=== PATIENT | male | born 1975 | race Caucasian/White ===

== ENCOUNTER 2022-11-27 14:16 | Inpatient (IN) | payer MEDICARE, MEDICAID ==
[~2022-11-27] VITALS: Ht 182.9 cm; Wt 109.3 kg
[2022-11-27 15:43] LABS: BASOPHILS % 0.4 % (0.0-2.0); EOSINOPHILS % 3.9 % (0.0-5.0); HEMATOCRIT. 28.2 % (42.0-52.0); HEMOGLOBIN. 9.3 g/dL (14.0-18.0); LYMPHOCYTES % 12.2 % (20.0-50.0); MEAN CORPUSCULAR HEMOGLOBIN 30.6 pg (28.0-32.0); MEAN CORPUSCULAR VOLUME 92.3 fL (80.0-94.0); MEAN PLATELET VOLUME 9.6 fl (7.4-10.4); MONOCYTES % 8.9 % (2.0-8.0); NEUTROPHILS % 74.6 % (40.0-76.0); PLATELET 310 x1000/uL (130-400); RED BLOOD CELL COUNT 3.05 mill/uL (4.7-6.1); RED CELL DISTRIBUTION WIDTH 17.7 % (11.6-14.6)
[2022-11-27 16:01] LABS: CHLORIDE 94 mEq/L (98-107)
[2022-11-27] MEDS ORDERED: ASPIRIN 81MG TABLET PO ONE (17:45)
[2022-11-27] MEDS ORDERED: NITROGLYCERIN 0.4MG TABLET SL SL PRN (17:45)
[2022-11-27] MEDS ORDERED: ACETAMINOPHEN WITH CODEINE 300/30MG TABLET PO ONE (18:30)
[2022-11-27] MEDS: MORPHINE SULFATE 2 MG/ML CPJ (NOT FOR IM USE) IV PRN (20:24)
[2022-11-28] MEDS: MORPHINE SULFATE 2 MG/ML CPJ (NOT FOR IM USE) IV PRN ×7 (01:06→23:10)
[2022-11-28] MEDS ORDERED: INSULIN REGULAR (HUMULIN R) 300UNITS/3ML VIAL SUBCUT NR (04:30)
[2022-11-28 06:14] LABS: BASOPHILS % 0.7 % (0.0-2.0); EOSINOPHILS % 2.9 % (0.0-5.0); HEMATOCRIT. 26.3 % (42.0-52.0); HEMOGLOBIN. 8.7 g/dL (14.0-18.0); LYMPHOCYTES % 16.5 % (20.0-50.0); MEAN CORPUSCULAR HEMOGLOBIN 30.6 pg (28.0-32.0); MEAN CORPUSCULAR VOLUME 92.5 fL (80.0-94.0); MEAN PLATELET VOLUME 8.4 fl (7.4-10.4); MONOCYTES % 10.6 % (2.0-8.0); NEUTROPHILS % 69.3 % (40.0-76.0); PLATELET 236 x1000/uL (130-400); RED BLOOD CELL COUNT 2.85 mill/uL (4.7-6.1); RED CELL DISTRIBUTION WIDTH 17.3 % (11.6-14.6)
[2022-11-28 07:56] LABS: HEPATITIS B SURFACE ANTIGEN NEGATIVE
[2022-11-28] MEDS ORDERED: ACETAMINOPHEN 325MG TABLET PO PRN (12:00)
[2022-11-28] MEDS ORDERED: DOCUSATE SODIUM 100MG CAPSULE PO PRN (12:00)
[2022-11-28] MEDS ORDERED: ONDANSETRON HCL 4MG/2ML INJ IV PRN (12:00)
[2022-11-28] MEDS ORDERED: IPRATROPIUM/ALBUTEROL 0.5-3(2.5)MG/3ML NEB NEB PRN (12:00)
[2022-11-28] MEDS: AMLODIPINE 5MG TABLET PO SCH ×3 (12:00→16:00)
[2022-11-28] MEDS ORDERED: NALOXONE HCL 0.4MG/ML VIAL IV PRN (12:15)
[2022-11-28] MEDS: ASPIRIN 81MG TABLET PO SCH (12:49)
[2022-11-28] MEDS: ENOXAPARIN 40MG/0.4ML SYR SUBCUT SCH (12:52)
[2022-11-28] MEDS ORDERED: LIDOCAINE HCL 4% CREAM 76GM TUBE TP PRN (13:45)
[2022-11-28] MEDS: GUAIFENESIN-DM 200MG-20MG/10ML UDC PO PRN ×2 (14:29→23:30)
[2022-11-28 14:43] LABS: CREATINE KINASE MB FRACTION 5.1 ng/mL (0.5-3.6)
[2022-11-28 15:10] VITALS: BP 168/94
[2022-11-28 16:10] VITALS: BP 179/98
[2022-11-28] MEDS: CLONIDINE 0.1MG TABLET PO PRN ×2 (16:39→23:23)
[2022-11-28 17:10] VITALS: BP 197/97
[2022-11-28] MEDS ORDERED: HYDRALAZINE 20MG/ML VIAL IV PRN (17:45)
[2022-11-28 18:10] VITALS: BP 202/102
[2022-11-28] MEDS: CARVEDILOL 3.125 MG TABLET PO SCH (21:00)
[2022-11-28 22:08] LABS: CREATINE KINASE MB FRACTION 4.2 ng/mL (0.5-3.6)
[2022-11-28 22:50] VITALS: BP 163/95
[2022-11-28 22:52] VITALS: BP 163/95
[2022-11-29] VITALS: BP 163/86
[2022-11-29] MEDS ORDERED: HJ10 SQ (00:13)
[2022-11-29] MEDS ORDERED: ONDA4TAB50 MT (00:13)
[2022-11-29] MEDS ORDERED: LANS15CA17 MT (00:13)
[2022-11-29] MEDS ORDERED: MORP15TA67 MT (00:13)
[2022-11-29] MEDS ORDERED: DIVA-73 MT (00:13)
[2022-11-29] MEDS ORDERED: BISA10SU62 RC (00:13)
[2022-11-29] MEDS ORDERED: TUSSL MT (00:13)
[2022-11-29] MEDS ORDERED: MOM MT (00:13)
[2022-11-29] MEDS ORDERED: NIFE-32 MT (00:13)
[2022-11-29] MEDS ORDERED: CLOP75TA33 MT (00:13)
[2022-11-29] MEDS ORDERED: INSU100V40 (00:13)
[2022-11-29] MEDS ORDERED: SODI10PO PO (00:13)
[2022-11-29] MEDS ORDERED: CLON0.2T PO (00:13)
[2022-11-29] MEDS ORDERED: GABA-529 MT (00:13)
[2022-11-29] MEDS ORDERED: OXYC1TAB12 MT (00:13)
[2022-11-29] MEDS ORDERED: HYDR2TAB7 MT (00:13)
[2022-11-29] MEDS ORDERED: TEMA15CA MT (00:13)
[2022-11-29] MEDS ORDERED: METO-539 MT (00:13)
[2022-11-29] MEDS ORDERED: B-CO1TAB PO (00:13)
[2022-11-29] MEDS ORDERED: LISI10TA26 MT (00:13)
[2022-11-29] MEDS ORDERED: FEO RC (00:13)
[2022-11-29] MEDS ORDERED: ASPI-1497 MT (00:13)
[2022-11-29] MEDS ORDERED: MELA3TAB40 MT (00:13)
[2022-11-29] MEDS ORDERED: TOPUD MT (00:13)
[2022-11-29] MEDS ORDERED: ISOS60TA76 MT (00:13)
[2022-11-29] MEDS ORDERED: HYDR-4133 PO (00:13)
[2022-11-29] MEDS ORDERED: POLY119P2 MT (00:13)
[2022-11-29] MEDS ORDERED: NITR0.4T49 SL (00:13)
[2022-11-29] MEDS ORDERED: LACT10SO6 MT (00:13)
[2022-11-29] MEDS ORDERED: SEVE0.8P MT (00:13)
[2022-11-29] MEDS ORDERED: ATOR10TA69 MT (00:13)
[2022-11-29] MEDS ORDERED: DIPH25TA24 MT (00:13)
[2022-11-29] MEDS ORDERED: GLUC1KIT3 SQ (00:13)
[2022-11-29] MEDS ORDERED: DOCU-150 MT (00:13)
[2022-11-29] MEDS ORDERED: DEXTROSE 50% WATER 50ML SYRINGE IV PRN (00:30)
[2022-11-29] MEDS: MORPHINE SULFATE 15MG TABLET SR PO PRN ×2 (02:07→14:20)
[2022-11-29] MEDS: OXYCODONE HCL/ACETAMINOPHEN 5/325MG TABLET PO PRN ×3 (03:08→18:52)
[2022-11-29 04:00] VITALS: BP 144/77
[2022-11-29] MEDS: BLOOD SUGAR DIAGNOSTIC STRIP TEST SCH ×4 (06:16→20:55)
[2022-11-29] MEDS: HYDROMORPHONE HCL 2MG TABLET PO PRN ×3 (07:19→23:57)
[2022-11-29 08:00] VITALS: BP 133/87
[2022-11-29] MEDS: ASPIRIN 81MG TABLET PO SCH (08:17)
[2022-11-29] MEDS: ENOXAPARIN 40MG/0.4ML SYR SUBCUT SCH (08:17)
[2022-11-29] MEDS: CARVEDILOL 3.125 MG TABLET PO SCH ×2 (08:17→20:54)
[2022-11-29] MEDS: INSULIN LISPRO 100 UNITS/ML SUBCUT SCH ×4 (08:26→20:55)
[2022-11-29 12:00] VITALS: BP 139/71
[2022-11-29 16:00] VITALS: BP_SYST 137; BP_SYST 172; BP_DIAS 71; BP_DIAS 91
[2022-11-29] MEDS: GUAIFENESIN-DM 200MG-20MG/10ML UDC PO PRN (17:49)
[2022-11-29] MEDS: CLONIDINE 0.1MG TABLET PO PRN (17:49)
[2022-11-29 20:00] VITALS: BP 165/88
[2022-11-30] VITALS (14 sets, daily range): BP systolic 142–185; BP diastolic 73–101
[2022-11-30] MEDS: OXYCODONE HCL/ACETAMINOPHEN 5/325MG TABLET PO PRN ×3 (02:47→20:05)
[2022-11-30] MEDS: GUAIFENESIN-DM 200MG-20MG/10ML UDC PO PRN ×2 (02:47→08:22)
[2022-11-30] MEDS: MORPHINE SULFATE 2 MG/ML CPJ (NOT FOR IM USE) IV PRN ×3 (04:29→20:43)
[2022-11-30 06:35] LABS: BASOPHILS % 0.7 % (0.0-2.0); EOSINOPHILS % 8.4 % (0.0-5.0); HEMATOCRIT. 24.6 % (42.0-52.0); HEMOGLOBIN. 8.4 g/dL (14.0-18.0); LYMPHOCYTES % 21.2 % (20.0-50.0); MEAN PLATELET VOLUME 8.3 fl (7.4-10.4); MONOCYTES % 10.4 % (2.0-8.0); NEUTROPHILS % 59.3 % (40.0-76.0); PLATELET 240 x1000/uL (130-400); RED BLOOD CELL COUNT 2.62 mill/uL (4.7-6.1); RED CELL DISTRIBUTION WIDTH 17.5 % (11.6-14.6)
[2022-11-30] MEDS: BLOOD SUGAR DIAGNOSTIC STRIP TEST SCH ×4 (07:40→21:00)
[2022-11-30] MEDS: ASPIRIN 81MG TABLET PO SCH (08:16)
[2022-11-30] MEDS: AMLODIPINE 5MG TABLET PO SCH (08:16)
[2022-11-30] MEDS: CARVEDILOL 3.125 MG TABLET PO SCH ×2 (08:17→22:10)
[2022-11-30] MEDS: INSULIN LISPRO 100 UNITS/ML SUBCUT SCH ×4 (08:22→22:22)
[2022-11-30] MEDS ORDERED: AMLODIPINE 5MG TABLET PO NR (09:00)
[2022-11-30] MEDS ORDERED: NITROGLYCERIN 50MCG/ML 10ML VIAL (CATH LAB) IV ONE (12:12)
[2022-11-30] MEDS ORDERED: NICARDIPINE 100MCG/ML 10ML VIAL (CATH LAB) IV ONE (12:12)
[2022-11-30] MEDS ORDERED: IODIXANOL 320MG/ML 100 ML BOTTLE IV ONE (14:42)
[2022-11-30] MEDS ORDERED: MIDAZOLAM HCL 2 MG/2 ML VIAL ONE (15:04)
[2022-11-30] MEDS ORDERED: HEPARIN 1000 UNITS/ML 10ML ONE (15:05)
[2022-11-30] MEDS ORDERED: FENTANYL CITRATE/PF 50MCG/ML 2ML VIAL ONE ×2 (15:05→16:10)
[2022-11-30] MEDS ORDERED: LIDOCAINE HCL/PF 2% 20MG/ML 5 ML/VIAL ONE (15:08)
[2022-11-30] MEDS ORDERED: ASPIRIN/SOD BICARB/CITRIC ACID 324MG TAB EFF ONE (15:12)
[2022-11-30] MEDS ORDERED: ATROPINE SULFATE 1MG/10ML SYR IV PRN (16:00)
[2022-11-30] MEDS ORDERED: ONDANSETRON HCL 4MG/2ML INJ IV PRN (16:00)
[2022-11-30] MEDS ORDERED: ACETAMINOPHEN 325MG TABLET PO PRN (16:00)
[2022-11-30] MEDS ORDERED: MORPHINE SULFATE 2 MG/ML CPJ (NOT FOR IM USE) IV PRN (16:00)
[2022-11-30] MEDS ORDERED: EPOETIN ALFA 10000UNITS/ML VIAL SUBCUT SCH (21:00)
[2022-11-30] MEDS ORDERED: EPOETIN ALFA-EPBX 4,000 UNIT/ML VIAL SUBCUT SCH (21:00)
[2022-11-30] MEDS ORDERED: NITROGLYCERIN 0.4MG TABLET SL SL PRN (21:45)
[2022-11-30] MEDS: NITROGLYCERIN OINT 1GM/INCH UDPKT TD SCH (21:45)
[2022-12-01] VITALS (14 sets, daily range): BP systolic 106–173; BP diastolic 66–113
[2022-12-01] MEDS: OXYCODONE HCL/ACETAMINOPHEN 5/325MG TABLET PO PRN ×3 (02:24→20:01)
[2022-12-01] MEDS: GUAIFENESIN-DM 200MG-20MG/10ML UDC PO PRN ×2 (05:15→21:44)
[2022-12-01] MEDS: HYDROMORPHONE HCL 2MG TABLET PO PRN (05:21)
[2022-12-01] MEDS: BLOOD SUGAR DIAGNOSTIC STRIP TEST SCH ×4 (06:23→21:47)
[2022-12-01] MEDS: NITROGLYCERIN OINT 1GM/INCH UDPKT TD SCH ×3 (06:23→17:39)
[2022-12-01] MEDS: CARVEDILOL 3.125 MG TABLET PO SCH (07:55)
[2022-12-01] MEDS: AMLODIPINE 10MG TABLET PO SCH (07:56)
[2022-12-01] MEDS: ASPIRIN 81MG TABLET PO SCH (07:56)
[2022-12-01] MEDS: INSULIN LISPRO 100 UNITS/ML SUBCUT SCH ×4 (07:58→21:46)
[2022-12-01] MEDS: HYDRALAZINE HCL 50MG TABLET PO SCH ×2 (09:35→21:47)
[2022-12-01] MEDS: MORPHINE SULFATE 2 MG/ML CPJ (NOT FOR IM USE) IV PRN (13:29)
[2022-12-01 16:25] LABS: BASOPHILS % 0.9 % (0.0-2.0); EOSINOPHILS % 6.7 % (0.0-5.0); HEMATOCRIT. 26.8 % (42.0-52.0); HEMOGLOBIN. 8.6 g/dL (14.0-18.0); LYMPHOCYTES % 18.5 % (20.0-50.0); MEAN CORPUSCULAR VOLUME 93.7 fL (80.0-94.0); MEAN PLATELET VOLUME 7.9 fl (7.4-10.4); MONOCYTES % 11.2 % (2.0-8.0); NEUTROPHILS % 62.7 % (40.0-76.0); PLATELET 244 x1000/uL (130-400); RED BLOOD CELL COUNT 2.86 mill/uL (4.7-6.1)
[2022-12-01 17:15] LABS: VITAMIN B12 SERUM 975 pg/mL (211-911)
[2022-12-01] MEDS ORDERED: CARVEDILOL 6.25 MG TABLET PO SCH (21:00)
[2022-12-02] VITALS: BP 164/90
[2022-12-02] MEDS: OXYCODONE HCL/ACETAMINOPHEN 5/325MG TABLET PO PRN ×2 (01:56→09:00)
[2022-12-02 04:00] VITALS: BP 158/86
[2022-12-02] MEDS: NITROGLYCERIN OINT 1GM/INCH UDPKT TD SCH ×3 (06:00→11:43)
[2022-12-02 06:08] LABS: BASOPHILS % 0.9 % (0.0-2.0); EOSINOPHILS % 7.3 % (0.0-5.0); HEMATOCRIT. 24.9 % (42.0-52.0); HEMOGLOBIN. 8.1 g/dL (14.0-18.0); LYMPHOCYTES % 22.7 % (20.0-50.0); MEAN CORPUSCULAR HEMOGLOBIN 30.4 pg (28.0-32.0); MEAN CORPUSCULAR VOLUME 93.3 fL (80.0-94.0); MONOCYTES % 11.1 % (2.0-8.0); PLATELET 217 x1000/uL (130-400); RED BLOOD CELL COUNT 2.67 mill/uL (4.7-6.1); RED CELL DISTRIBUTION WIDTH 17.9 % (11.6-14.6)
[2022-12-02] MEDS: BLOOD SUGAR DIAGNOSTIC STRIP TEST SCH ×2 (06:48→11:43)
[2022-12-02 08:00] VITALS: BP 154/69
[2022-12-02] MEDS: AMLODIPINE 10MG TABLET PO SCH (08:59)
[2022-12-02] MEDS ORDERED: CARVEDILOL 6.25 MG TABLET PO SCH (09:00)
[2022-12-02] MEDS: HYDRALAZINE HCL 50MG TABLET PO SCH (09:00)
[2022-12-02] MEDS: ASPIRIN 81MG TABLET PO SCH (09:00)
[2022-12-02] MEDS: INSULIN LISPRO 100 UNITS/ML SUBCUT SCH ×2 (09:02→11:56)
[2022-12-02] MEDS ORDERED: HYDRALAZINE HCL 100MG TABLET PO SCH ×2 (10:00→21:00)
[2022-12-02 10:02] VITALS: BP 154/69
[2022-12-02] MEDS ORDERED: HYDRALAZINE HCL 50MG TABLET PO SCH (11:30)
[2022-12-02 12:00] VITALS: BP 150/76
[2022-12-02] MEDS ORDERED: ALBUTEROL (0.083%) 2.5MG/3ML NEB HHN PRN (12:30)
[2022-12-02] MEDS ORDERED: IPRATROPIUM BROMIDE (0.02%) 0.5MG/2.5ML NEB HHN PRN (12:30)
== END 2022-12-02 12:32 | DRG 280 ==
LOC: ER 14:16 → EDBEDREQ 17:43 → 7WST 19:11 → EDBEDREQTM 19:14 → EDBEDREQ 19:14 → 3WST 11-30 16:48
PROVIDERS: ADMIT Internal Medicine; ATTEND Internal Medicine
PROC: 5A1D70Z Performance of Urinary Filtration, Intermittent, Less than 6 Hours Per Day (ICD-10-PCS; 2022-11-28)
PROC: 4A023N7 Measurement of Cardiac Sampling and Pressure, Left Heart, Percutaneous Approach (ICD-10-PCS; principal; 2022-11-30)
PROC: B211YZZ Fluoroscopy of Multiple Coronary Arteries using Other Contrast (ICD-10-PCS; 2022-11-30)
PROC: B215YZZ Fluoroscopy of Left Heart using Other Contrast (ICD-10-PCS; 2022-11-30)
PROC: 5A1D70Z Performance of Urinary Filtration, Intermittent, Less than 6 Hours Per Day (ICD-10-PCS; 2022-11-30)
PROC: 5A1D70Z Performance of Urinary Filtration, Intermittent, Less than 6 Hours Per Day (ICD-10-PCS; 2022-12-01)
DX: I21.4 Non-ST elevation (NSTEMI) myocardial infarction (principal); N18.6 End stage renal disease; E46 Unspecified protein-calorie malnutrition; F11.20 Opioid dependence, uncomplicated; I12.0 Hypertensive chronic kidney disease with stage 5 chronic kidney disease or end stage renal disease; I42.0 Dilated cardiomyopathy; Z20.822 Contact with and (suspected) exposure to COVID-19; I25.10 Atherosclerotic heart disease of native coronary artery without angina pectoris; E11.22 Type 2 diabetes mellitus with diabetic chronic kidney disease; E87.70 Fluid overload, unspecified; H54.8 Legal blindness, as defined in USA; I25.5 Ischemic cardiomyopathy; G89.29 Other chronic pain; D63.1 Anemia in chronic kidney disease; Z68.32 Body mass index [BMI] 32.0-32.9, adult; I25.2 Old myocardial infarction; Z99.2 Dependence on renal dialysis; Z99.81 Dependence on supplemental oxygen; Z96.659 Presence of unspecified artificial knee joint; Z95.5 Presence of coronary angioplasty implant and graft; Z87.891 Personal history of nicotine dependence; Z86.73 Personal history of transient ischemic attack (TIA), and cerebral infarction without residual deficits
CPT/HCPCS: 36415; 71045; 80048; 80053; 80061; 82550; 82553; 82607; 82962; 83540; 83550; 83735; 83880; 84484; 85025; 85044; 86705; 86709; 86803; 87340; 87426; 90935; 93005; 93306; 93458; 93970; 96372; 96374; 96375; 99285; C1769; C1887; C1893; J0360; J0885; J1644; J1650; J1815; J2250; J2270; J3010; J3490; Q9967

== ENCOUNTER 2022-12-07 06:11 | Inpatient (IN) | payer MEDICARE, MEDICAID ==
[~2022-12-07] VITALS: Ht 182.9 cm; Wt 115.8 kg
[2022-12-07] VITALS (7 sets, daily range): BP systolic 153–186; BP diastolic 63–106
[~2022-12-07 06:11] MED LIST: ASPI-1497 MT; ATOR10TA69 MT; B-CO1TAB PO; BISA10SU62 RC; CLON0.2T PO; CLOP75TA33 MT; DIPH25TA24 MT; DIVA-73 MT; DOCU-150 MT; FEO RC; GABA-529 MT; GLUC1KIT3 SQ; HJ10 SQ; HYDR-4133 PO; HYDR2TAB7 MT; INSU100V40; ISOS60TA76 MT; LACT10SO6 MT; LANS15CA17 MT; LISI10TA26 MT; MELA3TAB40 MT; METO-539 MT; MOM MT; MORP15TA67 MT; NIFE-32 MT; NITR0.4T49 SL; ONDA4TAB50 MT; OXYC1TAB12 MT; POLY119P2 MT; SEVE0.8P MT; SODI10PO PO; TEMA15CA MT; TOPUD MT; TUSSL MT
[2022-12-07 08:15] LABS: EOSINOPHILS % 7.8 % (0.0-5.0); HEMATOCRIT. 24.7 % (42.0-52.0); HEMOGLOBIN. 8.1 g/dL (14.0-18.0); MEAN CORPUSCULAR HEMOGLOBIN 30.2 pg (28.0-32.0); MEAN CORPUSCULAR VOLUME 92.2 fL (80.0-94.0); MEAN PLATELET VOLUME 7.9 fl (7.4-10.4); MONOCYTES % 10.1 % (2.0-8.0); NEUTROPHILS % 60.1 % (40.0-76.0); PLATELET 253 x1000/uL (130-400); RED BLOOD CELL COUNT 2.68 mill/uL (4.7-6.1); RED CELL DISTRIBUTION WIDTH 17.9 % (11.6-14.6)
[2022-12-07 08:25] LABS: CHLORIDE 99 mEq/L (98-107)
[2022-12-07 09:14] LABS: INR 1.1; PARTIAL THROMBOPLASTIN TIME 29.6 sec (23.4-31.0); PROTHROMBIN TIME 11.5 sec (9.6-11.0)
[2022-12-07] MEDS ORDERED: NITROGLYCERIN 0.4MG TABLET SL SL PRN (11:30)
[2022-12-07] MEDS ORDERED: ACETAMINOPHEN 325MG TABLET PO PRN (11:30)
[2022-12-07 12:05] LABS: HEPATITIS B SURFACE ANTIGEN NEGATIVE
[2022-12-07] MEDS ORDERED: HYDROCODONE/ACETAMINOPHEN 5/325MG TABLET PO PRN (13:15)
[2022-12-07] MEDS ORDERED: CLONIDINE 0.1MG TABLET PO PRN (13:15)
[2022-12-07] MEDS ORDERED: ONDANSETRON HCL 4MG/2ML INJ IV PRN (13:15)
[2022-12-07] MEDS ORDERED: ENOXAPARIN 40MG/0.4ML SYR SUBCUT SCH (13:15)
[2022-12-07] MEDS ORDERED: MAGNESIUM/ALUMINUM HYDROXIDE/SIMETHICONE 30ML UDC PO PRN (13:15)
[2022-12-07] MEDS ORDERED: NALOXONE HCL 0.4MG/ML VIAL IV PRN (15:00)
[2022-12-07] MEDS: HYDROCODONE/ACETAMINOPHEN 10/325MG TABLET PO PRN (16:00)
[2022-12-07 16:12] LABS: VITAMIN B12 SERUM 701 pg/mL (211-911)
[2022-12-07] MEDS: HYDROMORPHONE HCL/PF 2MG/ML CPJ IV PRN ×2 (16:24→22:33)
[2022-12-07] MEDS: INSULIN LISPRO 100 UNITS/ML SUBCUT SCH ×2 (18:20→21:00)
[2022-12-07] MEDS ORDERED: ASCORBIC ACID 500 MG TABLET PO SCH (21:00)
[2022-12-07] MEDS: ALLOPURINOL 300 MG TABLET PO SCH (21:00)
[2022-12-07] MEDS ORDERED: DOCUSATE SODIUM 100MG CAPSULE PO SCH (21:00)
[2022-12-07] MEDS: CARVEDILOL 6.25 MG TABLET PO SCH (21:00)
[2022-12-07] MEDS ORDERED: HEPARIN 10,000 UNITS/ML VIAL ONE (21:00)
[2022-12-07] MEDS: BLOOD SUGAR DIAGNOSTIC STRIP TEST SCH ×2 (21:00→22:25)
[2022-12-07] MEDS ORDERED: CHLORHEXIDINE GLUCONATE 4% EXTERNAL USE TOP SCH (21:00)
[2022-12-07] MEDS ORDERED: DIPHENHYDRAMINE 25MG CAPSULE PO PRN (21:00)
[2022-12-07] MEDS ORDERED: BISACODYL 10MG SUPP PR PRN (21:00)
[2022-12-08] VITALS (41 sets, daily range): BP systolic 103–174; BP diastolic 30–99
[2022-12-08] MEDS ORDERED: EPINEPHRINE 5 MG in DEXT 5% WATER 245 ML IV PRN ×2 (05:00→18:00)
[2022-12-08] MEDS ORDERED: INSULIN REGULAR 100U/100ML PMX 100 ML IV NR (05:00)
[2022-12-08] MEDS ORDERED: DOBUTAMINE 250MG PREMIX 250 ML IV PRN (05:00)
[2022-12-08] MEDS ORDERED: DEL NIDO ELECTROLYTE-S(PH 7.4) 1,000 ML IV NR ×2 (05:00)
[2022-12-08] MEDS ORDERED: CEFAZOLIN 2,000 MG in DEXT 5% WATER 100 ML IV NR (05:00)
[2022-12-08] MEDS ORDERED: PAPAVERINE HCL 180MG in SODIUM CHLORIDE 0.9% 24ML IV NR (05:00)
[2022-12-08] MEDS ORDERED: NICARDIPINE 40MG/200ML PREMIX 200 ML IV PRN (05:00)
[2022-12-08] MEDS ORDERED: DOPAMINE 400 MG PREMIX 250 ML IV PRN (05:00)
[2022-12-08] MEDS ORDERED: NOREPINEPHRINE 8 MG in DEXT 5% WATER 242 ML IV PRN (05:00)
[2022-12-08 05:17] LABS: BASOPHILS % 1.2 % (0.0-2.0); EOSINOPHILS % 5.9 % (0.0-5.0); HEMATOCRIT. 24.6 % (42.0-52.0); HEMOGLOBIN. 8.3 g/dL (14.0-18.0); LYMPHOCYTES % 19.5 % (20.0-50.0); MEAN CORPUSCULAR HEMOGLOBIN 30.9 pg (28.0-32.0); MEAN CORPUSCULAR VOLUME 91.7 fL (80.0-94.0); MONOCYTES % 7.9 % (2.0-8.0); NEUTROPHILS % 65.5 % (40.0-76.0); PLATELET 254 x1000/uL (130-400); RED BLOOD CELL COUNT 2.69 mill/uL (4.7-6.1); RED CELL DISTRIBUTION WIDTH 17.7 % (11.6-14.6)
[2022-12-08 06:09] LABS: T4 FREE 0.83 ng/dL (0.76-1.46)
[2022-12-08] MEDS: ALLOPURINOL 300 MG TABLET PO SCH (06:18)
[2022-12-08] MEDS: HYDROMORPHONE HCL/PF 2MG/ML CPJ IV PRN (06:22)
[2022-12-08] MEDS: BLOOD SUGAR DIAGNOSTIC STRIP TEST SCH ×8 (06:50→22:50)
[2022-12-08] MEDS: INSULIN LISPRO 100 UNITS/ML SUBCUT SCH ×2 (07:20→11:49)
[2022-12-08] MEDS ORDERED: POLYMYXIN B SULFATE 500000 UNITS/VIAL ONE (07:20)
[2022-12-08] MEDS ORDERED: SKIN ADHESIVE 0.7 GM EA TOP ONE (07:20)
[2022-12-08] MEDS ORDERED: THROMBIN (BOVINE) 5000 UNITS/VIAL TOP ONE (07:20)
[2022-12-08] MEDS ORDERED: NICARDIPINE 40MG/200ML PREMIX 200 ML IV ONE (07:22)
[2022-12-08] MEDS ORDERED: DOPAMINE 400MG/250ML PREMIX 250 ML IV ONE (07:22)
[2022-12-08] MEDS ORDERED: HEPARIN 1000 UNITS/ML 10ML ONE ×2 (07:22→15:49)
[2022-12-08] MEDS: HYDROCODONE/ACETAMINOPHEN 10/325MG TABLET PO PRN (08:54)
[2022-12-08] MEDS: CARVEDILOL 6.25 MG TABLET PO SCH ×2 (09:00→21:03)
[2022-12-08] MEDS ORDERED: PANTOPRAZOLE SODIUM 40 MG/VIAL IV SCH (09:00)
[2022-12-08] MEDS ORDERED: CHLORHEXIDINE GLUCONATE 4% EXTERNAL USE TOP SCH (09:00)
[2022-12-08] MEDS ORDERED: AMLO10TA80 PO (11:11)
[2022-12-08] MEDS ORDERED: CLON0.1T PO (11:11)
[2022-12-08] MEDS ORDERED: CARV6.2548 PO (11:11)
[2022-12-08] MEDS ORDERED: IPRA3AMP31 IH (11:18)
[2022-12-08] MEDS ORDERED: HYDR100T26 PO (11:18)
[2022-12-08] MEDS ORDERED: LIDO700A30 TP (11:18)
[2022-12-08] MEDS ORDERED: HYDR1LIQ5 PO (11:18)
[2022-12-08] MEDS ORDERED: ROCURONIUM BROMIDE 10MG/ML VIAL 5ML IV ONE ×2 (12:44→14:18)
[2022-12-08] MEDS ORDERED: MORPHINE SULFATE/PF 1MG/ML 10ML AMP ONE (13:16)
[2022-12-08] MEDS ORDERED: MAGNESIUM 1 G PREMIX 100 ML IV PRN ×2 (14:30→17:30)
[2022-12-08] MEDS ORDERED: INSULIN REGULAR 100U/100ML PMX 100 ML IV SCH (14:30)
[2022-12-08] MEDS ORDERED: MAGNESIUM 2 G PREMIX 50 ML IV PRN ×2 (14:30→17:30)
[2022-12-08] MEDS ORDERED: MAGNESIUM SULFATE 3 GM in DEXT 5% WATER 100 ML IV PRN ×2 (14:30→17:30)
[2022-12-08] MEDS ORDERED: CALCIUM CHLORIDE 1GM/10ML SYR IV ONE (15:21)
[2022-12-08] MEDS ORDERED: FUROSEMIDE 100MG/10ML VIAL ONE (15:49)
[2022-12-08] MEDS ORDERED: DEXAMETHASONE 4MG/ML 1ML VIAL ONE (15:49)
[2022-12-08] MEDS ORDERED: SODIUM BICARBONATE 8.4% 1 MEQ/ML 50ML SYR IV ONE (15:49)
[2022-12-08] MEDS ORDERED: BLOOD SUGAR DIAGNOSTIC STRIP TEST SCH (16:00)
[2022-12-08] MEDS ORDERED: ALBUTEROL 6.7GM HFA INHALER ONE (16:18)
[2022-12-08] MEDS ORDERED: NEOSTIGMINE METHYLSULFATE 1MG/ML 10 ML VIAL ONE (17:09)
[2022-12-08] MEDS ORDERED: GLYCOPYRROLATE 0.2 MG/ML 2ML VIAL ONE ×2 (17:09)
[2022-12-08] MEDS ORDERED: CALCIUM CHLORIDE 3,000 MG in DEXT 5% WATER 250 ML IV PRN (17:30)
[2022-12-08] MEDS ORDERED: ONDANSETRON HCL 4MG/2ML INJ IV PRN (17:30)
[2022-12-08] MEDS ORDERED: ONDANSETRON HCL 4MG TABLET PO PRN (17:30)
[2022-12-08] MEDS ORDERED: CALCIUM CHLORIDE 5,000 MG in DEXT 5% WATER 500 ML IV PRN (17:30)
[2022-12-08] MEDS ORDERED: ALBUMIN HUMAN 12.5G/250ML (5%) IV PRN (17:30)
[2022-12-08] MEDS ORDERED: ACETAMINOPHEN 325MG TABLET PO PRN (17:30)
[2022-12-08] MEDS ORDERED: ALBUMIN HUMAN 25GM/100ML (25%) IV PRN (17:30)
[2022-12-08] MEDS ORDERED: OXYCODONE HCL/ACETAMINOPHEN 5/325MG TABLET PO PRN (17:30)
[2022-12-08] MEDS ORDERED: SODIUM CHLORIDE 0.9% 500 ML IV PRN (17:30)
[2022-12-08] MEDS ORDERED: IPRATROPIUM/ALBUTEROL 0.5-3(2.5)MG/3ML NEB HHN SCH (17:30)
[2022-12-08] MEDS ORDERED: DOPAMINE 400MG/250ML PREMIX 250 ML IV PRN (17:30)
[2022-12-08 17:58] LABS: BG BASE EXCESS -1.5 mmol/L (-2.0-2.0); BG CARBOXYHEMOGLOBIN 0.8 % (0.5-1.5); BG DEOXYHEMOGLOBIN 7.3 % (0.0-5.0); BG HCO3 ACT 26.6 mmol/L (22.0-26.0); BG METHEMOGLOBIN 0.3 % (0.0-1.5); BG OXYGEN SATURATION 92.6 % (92.0-98.5); BG OXYHEMOGLOBIN 91.6 % (94.0-97.0); BG PCO2 62.2 mmHg (35.0-45.0); BG PH 7.249 (7.350-7.450); BG SAMPLE SITE ALINE; BG TOTAL HEMOGLOBIN 10.9 g/dL (12.0-18.0); BG VENT MODE MASK - NRB
[2022-12-08] MEDS: MAGNESIUM HYDROXIDE 400MG/5ML 30ML UDC PO SCH ×2 (18:00→22:29)
[2022-12-08 18:15] LABS: HEMATOCRIT. 29.4 % (42.0-52.0); HEMOGLOBIN. 9.5 g/dL (14.0-18.0); MEAN CORPUSCULAR HEMOGLOBIN 29.9 pg (28.0-32.0); MEAN CORPUSCULAR VOLUME 92.4 fL (80.0-94.0); MEAN PLATELET VOLUME 7.7 fl (7.4-10.4); PLATELET 237 x1000/uL (130-400); RED BLOOD CELL COUNT 3.18 mill/uL (4.7-6.1); RED CELL DISTRIBUTION WIDTH 17.2 % (11.6-14.6)
[2022-12-08] MEDS: DEXT 5%/0.45% NACL 1000ML 1,000 ML IV SCH (18:17)
[2022-12-08] MEDS: FAMOTIDINE 20MG/2ML VIAL IV SCH (18:25)
[2022-12-08] MEDS: DEXTROSE 50% WATER 50ML SYRINGE IV PRN (19:00)
[2022-12-08] MEDS: CEFAZOLIN 1000MG PREMIX 50 ML IV SCH (20:55)
[2022-12-08] MEDS: OXYCODONE HCL/ACETAMINOPHEN 5/325MG TABLET PO PRN (21:00)
[2022-12-08] MEDS: HYDRALAZINE HCL 100MG TABLET PO SCH (21:04)
[2022-12-08 21:07] LABS: BG BASE EXCESS -0.4 mmol/L (-2.0-2.0); BG CARBOXYHEMOGLOBIN 1.1 % (0.5-1.5); BG DEOXYHEMOGLOBIN 1.1 % (0.0-5.0); BG HCO3 ACT 25.7 mmol/L (22.0-26.0); BG METHEMOGLOBIN 0.3 % (0.0-1.5); BG OXYGEN SATURATION 98.9 % (92.0-98.5); BG OXYHEMOGLOBIN 97.5 % (94.0-97.0); BG PCO2 49.1 mmHg (35.0-45.0); BG PH 7.337 (7.350-7.450); BG PO2 147.8 mmHg (75.0-100.0); BG SAMPLE SITE ALINE; BG TOTAL HEMOGLOBIN 10.6 g/dL (12.0-18.0); BG VENT MODE MASK - NRB
[2022-12-08 21:23] LABS: PLATELET ESTIMATE NORMAL
[2022-12-08] MEDS: IPRATROPIUM BROMIDE (0.02%) 0.5MG/2.5ML NEB HHN SCH (21:58)
[2022-12-08] MEDS: ALBUTEROL (0.083%) 2.5MG/3ML NEB HHN SCH (21:58)
[2022-12-08] MEDS ORDERED: KCL 20MEQ/100ML PREMIX 100 ML IV NR (22:15)
[2022-12-09] VITALS (107 sets, daily range): BP systolic 85–185; BP diastolic 43–100
[2022-12-09 00:55] LABS: HEMATOCRIT. 27.7 % (42.0-52.0); HEMOGLOBIN. 9.1 g/dL (14.0-18.0); MEAN CORPUSCULAR HEMOGLOBIN 30.1 pg (28.0-32.0); MEAN CORPUSCULAR VOLUME 91.3 fL (80.0-94.0); MEAN PLATELET VOLUME 8.1 fl (7.4-10.4); PLATELET 242 x1000/uL (130-400); RED BLOOD CELL COUNT 3.03 mill/uL (4.7-6.1); RED CELL DISTRIBUTION WIDTH 17.1 % (11.6-14.6)
[2022-12-09] MEDS: BLOOD SUGAR DIAGNOSTIC STRIP TEST SCH ×13 (01:05→22:00)
[2022-12-09] MEDS: ALBUTEROL (0.083%) 2.5MG/3ML NEB HHN SCH ×6 (01:11→21:47)
[2022-12-09] MEDS: IPRATROPIUM BROMIDE (0.02%) 0.5MG/2.5ML NEB HHN SCH ×6 (01:11→21:46)
[2022-12-09] MEDS: MORPHINE SULFATE 4 MG/ML CPJ (NOT FOR IM USE) IV PRN ×3 (01:38→10:32)
[2022-12-09] MEDS: GUAIFENESIN 200MG/10ML SUGAR FREE UDC PO PRN ×2 (01:44→21:33)
[2022-12-09] MEDS: MAGNESIUM HYDROXIDE 400MG/5ML 30ML UDC PO SCH ×6 (03:56→21:31)
[2022-12-09] MEDS: OXYCODONE HCL/ACETAMINOPHEN 5/325MG TABLET PO PRN ×2 (04:19→08:55)
[2022-12-09 06:10] LABS: PHOSPHORUS 5.1 mg/dL (2.5-4.9)
[2022-12-09 06:39] LABS: HEMATOCRIT. 24.3 % (42.0-52.0); HEMOGLOBIN. 8.2 g/dL (14.0-18.0); MEAN CORPUSCULAR HEMOGLOBIN 31.1 pg (28.0-32.0); MEAN CORPUSCULAR VOLUME 91.8 fL (80.0-94.0); MEAN PLATELET VOLUME 8.3 fl (7.4-10.4); PLATELET 215 x1000/uL (130-400); RED BLOOD CELL COUNT 2.64 mill/uL (4.7-6.1); RED CELL DISTRIBUTION WIDTH 16.9 % (11.6-14.6)
[2022-12-09 07:28] LABS: PLATELET ESTIMATE NORMAL
[2022-12-09] MEDS: AMLODIPINE 10MG TABLET PO SCH (09:00)
[2022-12-09] MEDS: BACITRACIN 15GM TUBE TOP SCH ×2 (09:00→17:39)
[2022-12-09] MEDS: CARVEDILOL 6.25 MG TABLET PO SCH ×2 (09:00→21:00)
[2022-12-09] MEDS: HYDRALAZINE HCL 100MG TABLET PO SCH ×2 (09:00→21:00)
[2022-12-09] MEDS: DOCUSATE SODIUM 100MG CAPSULE PO SCH ×2 (09:18→17:39)
[2022-12-09] MEDS: FAMOTIDINE 20MG/2ML VIAL IV SCH (09:18)
[2022-12-09 10:34] LABS: BG CARBOXYHEMOGLOBIN 0.3 % (0.5-1.5); BG DEOXYHEMOGLOBIN 2.7 % (0.0-5.0); BG FRACTION INSPIRED OXYGEN 36; BG HCO3 ACT 21.8 mmol/L (22.0-26.0); BG OXYGEN SATURATION 97.3 % (92.0-98.5); BG PCO2 33.3 mmHg (35.0-45.0); BG PH 7.433 (7.350-7.450); BG PO2 99.1 mmHg (75.0-100.0); BG SAMPLE SITE ALINE; BG TOTAL HEMOGLOBIN 9.8 g/dL (12.0-18.0); BG VENT MODE NASAL CANNULA
[2022-12-09 12:14] LABS: PLATELET ESTIMATE NORMAL
[2022-12-09] MEDS: HYDROMORPHONE HCL/PF 2MG/ML CPJ IV PRN ×3 (13:41→23:03)
[2022-12-09] MEDS: DEXT 5%/0.45% NACL 1000ML 1,000 ML IV SCH (17:40)
[2022-12-09] MEDS ORDERED: DIPHENHYDRAMINE 25MG CAPSULE PO PRN (19:00)
[2022-12-09] MEDS: CEFAZOLIN 1000MG PREMIX 50 ML IV SCH (20:02)
[2022-12-09] MEDS: DEXTROSE 50% WATER 50ML SYRINGE IV PRN (23:07)
[2022-12-10] VITALS (73 sets, daily range): BP systolic 90–146; BP diastolic 42–88
[2022-12-10] MEDS: IPRATROPIUM BROMIDE (0.02%) 0.5MG/2.5ML NEB HHN SCH ×6 (01:37→21:10)
[2022-12-10] MEDS: ALBUTEROL (0.083%) 2.5MG/3ML NEB HHN SCH ×6 (01:38→21:09)
[2022-12-10] MEDS: BLOOD SUGAR DIAGNOSTIC STRIP TEST SCH ×9 (02:05→20:04)
[2022-12-10] MEDS: HYDROMORPHONE HCL/PF 2MG/ML CPJ IV PRN ×5 (03:35→20:02)
[2022-12-10 05:25] LABS: BASOPHILS % 0.4 % (0.0-2.0); EOSINOPHILS % 0.4 % (0.0-5.0); HEMATOCRIT. 23.6 % (42.0-52.0); HEMOGLOBIN. 7.8 g/dL (14.0-18.0); LYMPHOCYTES % 13.9 % (20.0-50.0); MEAN CORPUSCULAR HEMOGLOBIN 30.2 pg (28.0-32.0); MEAN CORPUSCULAR VOLUME 91.8 fL (80.0-94.0); MEAN PLATELET VOLUME 8.5 fl (7.4-10.4); MONOCYTES % 7.3 % (2.0-8.0); PLATELET 201 x1000/uL (130-400); RED BLOOD CELL COUNT 2.58 mill/uL (4.7-6.1); RED CELL DISTRIBUTION WIDTH 17.3 % (11.6-14.6)
[2022-12-10 05:50] LABS: PHOSPHORUS 4.9 mg/dL (2.5-4.9)
[2022-12-10] MEDS: HYDROCODONE/ACETAMINOPHEN 10/325MG TABLET PO PRN ×2 (06:32→22:16)
[2022-12-10] MEDS: BACITRACIN 15GM TUBE TOP SCH ×2 (09:00→17:00)
[2022-12-10] MEDS ORDERED: LIDOCAINE HCL 1% 30ML VIAL (10MG/ML) ONE (09:18)
[2022-12-10] MEDS: AMLODIPINE 10MG TABLET PO SCH (09:52)
[2022-12-10] MEDS: ASPIRIN 81MG TABLET PO SCH (09:52)
[2022-12-10] MEDS: HYDRALAZINE HCL 100MG TABLET PO SCH ×2 (09:53→22:18)
[2022-12-10] MEDS: CARVEDILOL 6.25 MG TABLET PO SCH ×2 (09:54→20:02)
[2022-12-10] MEDS: MIDODRINE HCL 5MG TABLET PO SCH ×3 (09:55→17:00)
[2022-12-10] MEDS: DOCUSATE SODIUM 250MG CAPSULE PO SCH ×2 (09:57→17:09)
[2022-12-10] MEDS: FAMOTIDINE 20MG TABLET PO SCH (09:58)
[2022-12-10] MEDS ORDERED: DEXTROSE 50% WATER 50ML SYRINGE IV PRN (10:15)
[2022-12-10] MEDS: OXYCODONE HCL/ACETAMINOPHEN 5/325MG TABLET PO PRN ×3 (10:28→17:09)
[2022-12-10] MEDS: INSULIN LISPRO 100 UNITS/ML SUBCUT SCH ×3 (12:41→20:14)
[2022-12-10] MEDS: GUAIFENESIN 200MG/10ML SUGAR FREE UDC PO PRN (22:18)
[2022-12-11] VITALS (19 sets, daily range): BP systolic 108–157; BP diastolic 56–109
[2022-12-11] MEDS: HYDROMORPHONE HCL/PF 2MG/ML CPJ IV PRN ×4 (00:06→13:25)
[2022-12-11] MEDS: IPRATROPIUM BROMIDE (0.02%) 0.5MG/2.5ML NEB HHN SCH ×5 (00:45→20:26)
[2022-12-11] MEDS: ALBUTEROL (0.083%) 2.5MG/3ML NEB HHN SCH ×5 (00:45→20:26)
[2022-12-11] MEDS: HYDROCODONE/ACETAMINOPHEN 10/325MG TABLET PO PRN ×4 (02:39→22:20)
[2022-12-11] MEDS: BLOOD SUGAR DIAGNOSTIC STRIP TEST SCH ×4 (06:07→21:53)
[2022-12-11 06:47] LABS: BASOPHILS % 0.9 % (0.0-2.0); EOSINOPHILS % 4.5 % (0.0-5.0); HEMATOCRIT. 26.7 % (42.0-52.0); LYMPHOCYTES % 13.7 % (20.0-50.0); MEAN CORPUSCULAR HEMOGLOBIN 31.2 pg (28.0-32.0); MEAN CORPUSCULAR VOLUME 91.1 fL (80.0-94.0); MEAN PLATELET VOLUME 8.3 fl (7.4-10.4); MONOCYTES % 7.2 % (2.0-8.0); NEUTROPHILS % 73.7 % (40.0-76.0); PLATELET 201 x1000/uL (130-400); RED BLOOD CELL COUNT 2.93 mill/uL (4.7-6.1); RED CELL DISTRIBUTION WIDTH 16.8 % (11.6-14.6)
[2022-12-11 07:09] LABS: PHOSPHORUS 5.7 mg/dL (2.5-4.9)
[2022-12-11 07:10] LABS: HEMOGLOBIN. 9.1 g/dL (14.0-18.0)
[2022-12-11] MEDS: DOCUSATE SODIUM 250MG CAPSULE PO SCH ×2 (08:12→18:03)
[2022-12-11] MEDS: ASPIRIN 81MG TABLET PO SCH (08:12)
[2022-12-11] MEDS: FAMOTIDINE 20MG TABLET PO SCH (08:13)
[2022-12-11] MEDS: INSULIN LISPRO 100 UNITS/ML SUBCUT SCH ×4 (08:13→22:09)
[2022-12-11] MEDS: MIDODRINE HCL 5MG TABLET PO SCH (08:13)
[2022-12-11] MEDS: GUAIFENESIN 200MG/10ML SUGAR FREE UDC PO PRN (08:13)
[2022-12-11] MEDS: BACITRACIN 15GM TUBE TOP SCH ×2 (08:14→18:03)
[2022-12-11] MEDS: OXYCODONE HCL/ACETAMINOPHEN 5/325MG TABLET PO PRN ×2 (11:39→20:18)
[2022-12-11] MEDS: CARVEDILOL 6.25 MG TABLET PO SCH ×2 (11:45→22:07)
[2022-12-11] MEDS: HYDRALAZINE HCL 100MG TABLET PO SCH ×2 (11:45→22:05)
[2022-12-11] MEDS: CALCIUM ACETATE 667MG CAPSULE PO SCH ×2 (13:34→18:03)
[2022-12-11] MEDS: AMLODIPINE 5MG TABLET PO SCH ×2 (13:34→22:07)
[2022-12-11] MEDS: POLYETHYLENE GLYCOL 3350 (17GM) 1 DOSE PACK PO SCH (18:04)
[2022-12-11] MEDS ORDERED: EPOETIN ALFA-EPBX 4,000 UNIT/ML VIAL SUBCUT SCH (21:00)
[2022-12-12] MEDS: IPRATROPIUM BROMIDE (0.02%) 0.5MG/2.5ML NEB HHN SCH ×3 (00:17→11:41)
[2022-12-12] MEDS: ALBUTEROL (0.083%) 2.5MG/3ML NEB HHN SCH ×3 (00:17→11:42)
[2022-12-12] MEDS: OXYCODONE HCL/ACETAMINOPHEN 5/325MG TABLET PO PRN ×3 (01:41→11:54)
[2022-12-12] MEDS: HYDROCODONE/ACETAMINOPHEN 10/325MG TABLET PO PRN ×2 (02:34→09:00)
[2022-12-12 03:51] VITALS: BP 137/99
[2022-12-12] MEDS: BLOOD SUGAR DIAGNOSTIC STRIP TEST SCH ×2 (06:14→11:50)
[2022-12-12 06:58] LABS: BASOPHILS % 0.4 % (0.0-2.0); EOSINOPHILS % 8.6 % (0.0-5.0); HEMOGLOBIN. 9.1 g/dL (14.0-18.0); LYMPHOCYTES % 13.4 % (20.0-50.0); MEAN CORPUSCULAR HEMOGLOBIN 30.8 pg (28.0-32.0); MEAN CORPUSCULAR VOLUME 91.5 fL (80.0-94.0); MEAN PLATELET VOLUME 8.6 fl (7.4-10.4); MONOCYTES % 8.6 % (2.0-8.0); PLATELET 215 x1000/uL (130-400); RED BLOOD CELL COUNT 2.94 mill/uL (4.7-6.1); RED CELL DISTRIBUTION WIDTH 16.3 % (11.6-14.6)
[2022-12-12 08:00] VITALS: BP 116/60
[2022-12-12] MEDS: DOCUSATE SODIUM 250MG CAPSULE PO SCH (08:59)
[2022-12-12] MEDS: FAMOTIDINE 20MG TABLET PO SCH (08:59)
[2022-12-12] MEDS: HYDRALAZINE HCL 100MG TABLET PO SCH (09:00)
[2022-12-12] MEDS: ASPIRIN 81MG TABLET PO SCH (09:00)
[2022-12-12] MEDS: CARVEDILOL 6.25 MG TABLET PO SCH (09:00)
[2022-12-12] MEDS: POLYETHYLENE GLYCOL 3350 (17GM) 1 DOSE PACK PO SCH ×2 (09:00→09:01)
[2022-12-12] MEDS: CALCIUM ACETATE 667MG CAPSULE PO SCH ×2 (09:00→11:54)
[2022-12-12] MEDS: AMLODIPINE 5MG TABLET PO SCH (09:00)
[2022-12-12] MEDS: BACITRACIN 15GM TUBE TOP SCH (09:01)
[2022-12-12] MEDS: INSULIN LISPRO 100 UNITS/ML SUBCUT SCH ×2 (09:01→11:59)
[2022-12-12 11:18] VITALS: BP 138/89
[2022-12-12 12:56] VITALS: BP 128/67
== END 2022-12-12 13:50 | DRG 235 ==
LOC: ER 06:11 → MICUSO 10:27 → 3WST 12-08 06:05 → CVICU 12-08 14:31 → 3WST 12-10 17:25
PROVIDERS: ADMIT Hospitalist; ATTEND Hospitalist
PROC: 5A1D70Z Performance of Urinary Filtration, Intermittent, Less than 6 Hours Per Day (ICD-10-PCS; 2022-12-07)
PROC: 021209W Bypass Coronary Artery, Three Arteries from Aorta with Autologous Venous Tissue, Open Approach (ICD-10-PCS; principal; 2022-12-08)
PROC: 02100Z9 Bypass Coronary Artery, One Artery from Left Internal Mammary, Open Approach (ICD-10-PCS; 2022-12-08)
PROC: 06BP4ZZ Excision of Right Saphenous Vein, Percutaneous Endoscopic Approach (ICD-10-PCS; 2022-12-08)
PROC: 30233N1 Transfusion of Nonautologous Red Blood Cells into Peripheral Vein, Percutaneous Approach (ICD-10-PCS; 2022-12-08)
PROC: 5A1D70Z Performance of Urinary Filtration, Intermittent, Less than 6 Hours Per Day (ICD-10-PCS; 2022-12-08)
PROC: 4A12XSH Monitoring of Cardiac Vascular Perfusion using Indocyanine Green Dye, External Approach (ICD-10-PCS; 2022-12-08)
PROC: 5A1D70Z Performance of Urinary Filtration, Intermittent, Less than 6 Hours Per Day (ICD-10-PCS; 2022-12-09)
PROC: 05H533Z Insertion of Infusion Device into Right Subclavian Vein, Percutaneous Approach (ICD-10-PCS; 2022-12-10)
PROC: B546ZZA Ultrasonography of Right Subclavian Vein, Guidance (ICD-10-PCS; 2022-12-10)
PROC: 5A1D70Z Performance of Urinary Filtration, Intermittent, Less than 6 Hours Per Day (ICD-10-PCS; 2022-12-11)
DX: I25.110 Atherosclerotic heart disease of native coronary artery with unstable angina pectoris (principal); J96.00 Acute respiratory failure, unspecified whether with hypoxia or hypercapnia; N18.6 End stage renal disease; E87.1 Hypo-osmolality and hyponatremia; E46 Unspecified protein-calorie malnutrition; I12.0 Hypertensive chronic kidney disease with stage 5 chronic kidney disease or end stage renal disease; F11.20 Opioid dependence, uncomplicated; I42.0 Dilated cardiomyopathy; G89.4 Chronic pain syndrome; I25.5 Ischemic cardiomyopathy; H54.8 Legal blindness, as defined in USA; E11.22 Type 2 diabetes mellitus with diabetic chronic kidney disease; Z20.822 Contact with and (suspected) exposure to COVID-19; E11.319 Type 2 diabetes mellitus with unspecified diabetic retinopathy without macular edema; E11.42 Type 2 diabetes mellitus with diabetic polyneuropathy; E87.70 Fluid overload, unspecified; E87.5 Hyperkalemia; E83.39 Other disorders of phosphorus metabolism; D63.1 Anemia in chronic kidney disease; M48.061 Spinal stenosis, lumbar region without neurogenic claudication; G47.33 Obstructive sleep apnea (adult) (pediatric); M51.16 Intervertebral disc disorders with radiculopathy, lumbar region; M47.26 Other spondylosis with radiculopathy, lumbar region; M19.90 Unspecified osteoarthritis, unspecified site; Z88.8 Allergy status to other drugs, medicaments and biological substances; Z96.659 Presence of unspecified artificial knee joint; Z79.899 Other long term (current) drug therapy; I25.2 Old myocardial infarction; Z95.5 Presence of coronary angioplasty implant and graft; Z68.34 Body mass index [BMI] 34.0-34.9, adult; Z99.81 Dependence on supplemental oxygen; Z99.2 Dependence on renal dialysis; Z86.73 Personal history of transient ischemic attack (TIA), and cerebral infarction without residual deficits; Z87.891 Personal history of nicotine dependence; Z83.3 Family history of diabetes mellitus
CPT/HCPCS: 36415; 36573; 36600; 71045; 80048; 80053; 82375; 82607; 82728; 82746; 82805; 82962; 83036; 83540; 83550; 83735; 83880; 84100; 84132; 84439; 84443; 84484; 85025; 86705; 86709; 86803; 86850; 86900; 86920; 87340; 87426; 90935; 93005; 93880; 94640; 97110; 97162; 97166; 97530; 97535; 99285; C1725; C9803; J0690; J0885; J1100; J1170; J1265; J1644; J1815; J1940; J2270; J2274; J2440; J2710; J3475; J3480; J3490; J7060; P9016; Q0163